=== PATIENT | male | born 1995 | race Two or more races ===

== ENCOUNTER 2024-10-18 21:21 | Emergency (ER) | payer SELFPAY ==
[2024-10-18] VITALS (16 sets, daily range): BP systolic 130–196; BP diastolic 80–106; PULSE 117–121; TEMP 37.2–39.2; O2SAT 89–99; BMI 32.1
--- NOTE | 2024-10-18 21:45 | ED_ITS ---
HPI - Fever General Chief Complaint: Fever Stated Complaint: LIGHTHEADED Time Seen by Provider: 10/18/24 21:29 Source: patient Mode of arrival: walk-in Limitations: no limitations History of Present Illness HPI Narrative: This 29-year-old male presents for evaluation of 1 day of fevers, chills, body aches with headache, nausea, 1 episode of vomiting. The symptoms started earlier today while he was driving. He has had 1 episode of vomiting but no diarrhea. He denies any chest pain or shortness of breath. He states he went to [facility] and waited for 3 hours in their lobby before coming to this emergency department. He states he feels dizzy and lightheaded like he might pass out. His girlfriend was concerned that it might be his tooth that has been bothering him causing his fever. He has a right upper posterior molar that is growing out sideways. I do not see any periapical abscess or sign of acute dental infection adjacent to this tooth. There is also no facial swelling, difficulty opening the mouth or other notable findings in the mouth. The patient states he is trying to get into [facility] to get this tooth extracted. Related Data Home Medications ?Medication ?Instructions ?Recorded ?Confirmed No Known Home Medications 10/18/24 10/18/24 Allergies Allergy/AdvReac Type Severity Reaction Status Date / Time No Known Drug Allergies Allergy Verified 10/18/24 21:33 Review of Systems ROS Status of ROS 10 or more systems reviewed and unremark able except as noted in history and below PFSH PFSH Social History Little interest or pleasure in doing things: not at all Feeling down, depressed, or hopeless: not at all Exam Narrative Exam Narrative: Vital signs and Nursing Notes reviewed: Patient is febrile, tachycardic, he has a normal blood pressure, he is not hypoxic with pulse ox of 99% on room air General: Awake, alert, oriented, nontoxic but uncomfortable appearing - [place] male, no respiratory distress, no active vomiting HEENT: Normocephalic atraumatic, mucous membranes are moist and pink, eyes are clear, normal conjunctiva, vision is grossly intact, posterior pharynx is normal in appearance. The right upper posterior molar is mildly tender to palpation percussion and is growing out of his gum sideways. I do not see any. Apical abscess, signs of necrotizing gingivitis, diffuse periodontal disease or other notable findings Neck: Supple, no meningeal signs, no anterior or posterior cervical lymphadenopathy Chest: Lungs are clear to auscultation with good air entry, there is no wheezing rhonchi or rales appreciated no accessory muscle use, patient is speaking in complete sentences-no chest wall tenderness to palpation CVS: Regular rate and rhythm S1-S2, tachycardic at 120 upon arrival, no murmurs rubs or gallops, pulses are brisk and equal bilaterally ABD: Soft, nondistended, nontender, no rebound guarding or rigidity, bowel sounds are normal, no pulsatile masses appreciated Extremities: Moving all extremities, no lower extremity tenderness or swelling noted, negative Homans' sign, pulses are brisk and equal bilaterally Skin: Normal in appearance without rash,pallor, petechiae or purpura Neuro: No focal deficits Constitutional Vital Signs, click to edit/add: Last Vital Signs Temp 102.6 F H 10/18/24 21:44 Pulse 117 H 10/18/24 22:23 Resp 18 10/18/24 22:23 BP 167/88 H 10/18/24 23:00 Pulse Ox 97 10/18/24 23:20 O2 Del Method Room Air 10/18/24 21:27 Course Vital Signs Vital signs: Vital Signs Temperature 101.2 F H 10/18/24 21:27 Pulse Rate 121 H 10/18/24 21:27 Respiratory Rate 20 10/18/24 21:27 Blood Pressure 196/106 H 10/18/24 21:27 Pulse Oximetry 99 10/18/24 21:27 Oxygen Delivery Method Room Air 10/18/24 21:27 Temperature 102.6 F H 10/18/24 21:44 Pulse Rate 117 H 10/18/24 22:23 Respiratory Rate 18 10/18/24 22:23 Blood Pressure 167/88 H 10/18/24 23:00 Pulse Oximetry 97 10/18/24 23:20 Oxygen Delivery Method Room Air 10/18/24 21:27 MDM - Fever MDM Narrative Medical decision making narrative: This 29-year-old male, non-smoker except for marijuana presents for evaluation of acute onset of fevers, chills, body aches with nausea, 1 episode of vomiting and dry cough that started abruptly earlier in the day. He states he waited for 3 hours at [facility] to get seen but after not being seen for 3 hours he came to this emergency department. The patient's girlfriend was concerned that a tooth that he has in his right upper gumline may be causing the fever and infection. He does have a posterior molar/wisdom tooth that is growing out laterally from his gumline but I do not appreciate any acute infection, periapical abscess or other signs of dental infection. He was noted to have a temperature of 102.6 upon arrival and was tachycardic. An IV was placed and he was medicated with Tylenol, Toradol, IV fluids and Zofran. He tested negative for strep, influenza and COVID-19. Routine labs are reviewed. He has a normal white count and hemoglobin. His creatinine is elevated at 1.55. The remainder of his labs were normal. 1 view chest x-ray is negative for acute findings. On reevaluation he looks to be feeling better. He states he still feels achy all over. I explained to him that he likely has an influenza-like virus that he may have not tested positive for since his symptoms started several hours prior to his arrival. He will be discharged home with a prescription for ibuprofen, Zofran and amoxicillin for his dental pain. He was encouraged to follow-up closely with a dentist for further evaluation and treatment of this dental pain that he is having. Medical Records Medical records narrative: The [address] [address] XRay Report Signed Patient: KIMO BONNER MR#: [id number] : 1995 Acct:[id number] Age/Sex: 29 / M ADM Date: 10/18/24 Loc: ER Attending Dr: Ordering Physician: Kailyn Zapata Date of Service: 10/18/24 Procedure(s): XR chest 1V Accession Number(s): [id number] cc: GREGORIA BLANCO~ The [address] [address] Patient Name: KIMO BONNER MRN: [id number] date: 1995 Sex: M Assigned Patient Location: ER Current Patient Location: ER Accession/Order Number: [id number] Exam Date: 10/18/2024 22:45 Report Date: 10/18/2024 23:19 At the request of: KAILYN ZAPATA Procedure: XR chest 1V EXAMINATION: XR chest 1V HISTORY: fever, cough COMPARISON: XR chest 06/01/2021 FINDINGS: LUNGS: No significant pulmonary parenchymal abnormalities. VASCULATURE: No increased pulmonary vasculature. PLEURA: No pneumothorax, effusion, or pleural thickening. CARDIAC: No cardiomegaly or cardiac silhouette abnormality. MEDIASTINUM: No visible mass or adenopathy. BONES: No fracture or visible bone lesion. OTHER: Negative. XR/XR chest 1V IMPRESSION: 1. No acute cardiopulmonary process. Electronically authenticated by: LIZETH BASS Date: 10/18/2024 23:19 Lab Data Labs: Lab Results 10/18/24 10/18/24 10/18/24 Range/Units 21:39 21:50 21:57 WBC 10.8 (4.0-11.0) 10^3/uL RBC 4.70 (4.70-6.10) 10^6/uL Hgb 13.9 L (14.0-18.0) g/dL Hct 41.5 L (42.0-54.0) % MCV 88.3 (80.0-94.0) fL MCH 29.6 (25.9-34.0) pg MCHC 33.5 (29.9-35.2) g/dL RDW 13.1 (11.0-15.0) % Plt Count 253 (150-450) 10^3/uL MPV 9.3 L (9.5-13.5) fL Seg Neuts % (Manual) 90.0 H (43.0-75.0) Band Neutrophils % 0.0 (0-5) % Lymphocytes % (Manual) 2.0 L (20.5-60.0) % Monocytes % (Manual) 6.0 (1.7-12.0) % Eosinophils % (Manual) 1.0 (0.9-7.0) % Basophils % (Manual) 1.0 (0.2-2.0) % Neutrophils # (Manual) 9.72 H (1.4-6.5) 10^3/uL Band Neutrophils # 0.0 (0.0-0.3) 10^3/uL Lymphocytes # (Manual) 0.21 L (1.20-3.80) 10^3/uL Monocytes # (Manual) 0.64 (0.30-0.80) 10^3/uL Eosinophils # (Manual) 0.10 (0.00-0.70) 10^3/uL Basophils # (Manual) 0.10 (0.00-0.10) 10^3/uL Toxic Vacuolation 3+ Sodium 136 (136-145) mmol/L Potassium 3.6 (3.5-5.1) mmol/L Chloride 103 (98-107) mmol/L Carbon Dioxide 23.6 (21.0-32.0) mmol/L Anion Gap 13.0 BUN 13.0 (7.0-18.0) mg/dL Creatinine 1.55 H (0.70-1.30) mg/dL Est GFR ( Amer) >60 (>=60 mL/min/1.73m^2) Est GFR (Non-Af Amer) 53 L (>=60 mL/min/1.73m^2) BUN/Creatinine Ratio 8.4 Glucose 113 H (74-106) mg/dL Calcium 9.2 (8.5-10.1) mg/dL Total Bilirubin 0.6 (0.2-1.0) mg/dL AST 14 L (15-37) U/L ALT 27 (16-63) U/L Alkaline Phosphatase 66 (46-116) U/L Total Protein 8.1 (6.4-8.2) g/dL Albumin 3.9 (3.4-5.0) g/dL Globulin 4.2 g/dL Albumin/Globulin Ratio 0.9 Influenza Type A Ag Negative Influenza Type B Ag Negative SARS-CoV-2 Ag (CV2AG) Negative (NEGATIVE) Streptococcus Screen Negative Discharge Plan Discharge Chief Complaint: Fever Clinical Impression: Viral infection, Pain, dental Patient Disposition: Home, Self-Care Time of Disposition Decision: 23:35 Condition: Good Prescriptions / Home Meds: No Action No Known Home Medications Print Language: Monegasque Instructions: Viral Syndrome (ED), Toothache (ED) Referrals: Physician,Non-Staff, [Physician] - 1 week
--- NOTE | 2024-10-18 21:48 | PC.NURSE ---
patient complains of a fever, and feels like going topass out, onset this morning. this patient was at [facility] for the past 3 hours prior to arrival here
[2024-10-18 21:57] LABS: Influenza Virus A Antigen Negative; Influenza Virus B Antigen Negative; Internal Control Within Normal Limits; SARS-CoV-2 Ag NEGATIVE (NEGATIVE)
[2024-10-18 22:08] LABS: Internal Control Within Normal Limits; Strep A Antigen Screen Negative
[2024-10-18 22:11] LABS: Hematocrit 41.5 % (42.0-54.0); Hemoglobin 13.9 g/dL (14.0-18.0); Mean Corpuscular HGB Conc 33.5 g/dL (29.9-35.2); Mean Corpuscular Hemoglobin 29.6 pg (25.9-34.0); Mean Corpuscular Volume 88.3 fL (80.0-94.0); Mean Platelet Volume 9.3 fL (9.5-13.5); Platelet Count 253 10^3/uL (150-450); Red Cell Distribution Width 13.1 % (11.0-15.0); White Blood Count 10.8 10^3/uL (4.0-11.0)
[2024-10-18] MEDS: 0.9 % SODIUM CHLORIDE 1,000 ML 1000 ML IV (22:15)
[2024-10-18] MEDS: KETOROLAC TROMETHAMINE 30 MG/ML VIAL IVP (22:16)
[2024-10-18] MEDS: ACETAMINOPHEN 325 MG TABLET 650 MG PO (22:16)
[2024-10-18] MEDS: ONDANSETRON PF 4 MG/2 ML VIAL IV (22:16)
[2024-10-18 22:29] LABS: Alanine Aminotransferase 27 U/L (16-63); Albumin Globulin Ratio 0.9; Albumin Level 3.9 g/dL (3.4-5.0); Alkaline Phosphatase 66 U/L (46-116); Aspartate Amino Transferase 14 U/L (15-37); BUN Creatinine Ratio 8.4; Bilirubin Total 0.6 mg/dL (0.2-1.0); Calcium 9.2 mg/dL (8.5-10.1); Carbon Dioxide 23.6 mmol/L (21.0-32.0); Chloride 103 mmol/L (98-107); Estimated GFR (African America >60 (>=60 mL/min/1.73m^2); Estimated GFR (Non-African Ame 53 (>=60 mL/min/1.73m^2); Globulin 4.2 g/dL; Glucose 113 mg/dL (74-106); Potassium 3.6 mmol/L (3.5-5.1); Sodium 136 mmol/L (136-145); Total Protein 8.1 g/dL (6.4-8.2)
[2024-10-18 22:33] LABS: Lymphocytes Absolute Manual 0.21 10^3/uL (1.20-3.80); Monocytes Absolute Manual 0.64 10^3/uL (0.30-0.80)
[2024-10-18 22:34] LABS: Segmented Neut Absolute Manual 9.72 10^3/uL (1.4-6.5); Toxic Vacuolation 3+
--- NOTE | 2024-10-18 22:39 | PC.NURSE ---
this patient lying supine on the bed awake and alert watching football on his cell phone, this patient voice no concerns and shows no signs of distress. this patient aware waiting on all of the test results to come back
--- NOTE | 2024-10-18 22:41 | XR_ITS ---
The [address] [address] Patient Name: KIMO BONNER MRN: [id number] date: 1995 Sex: M Assigned Patient Location: ER Current Patient Location: ER Accession/Order Number: [id number] Exam Date: 10/18/2024 22:45 Report Date: 10/18/2024 23:19 At the request of: SARAH MARKER Procedure: XR chest 1V EXAMINATION: XR chest 1V HISTORY: fever, cough COMPARISON: XR chest 06/01/2021 FINDINGS: LUNGS: No significant pulmonary parenchymal abnormalities. VASCULATURE: No increased pulmonary vasculature. PLEURA: No pneumothorax, effusion, or pleural thickening. CARDIAC: No cardiomegaly or cardiac silhouette abnormality. MEDIASTINUM: No visible mass or adenopathy. BONES: No fracture or visible bone lesion. OTHER: Negative. XR/XR chest 1V IMPRESSION: 1. No acute cardiopulmonary process. Electronically authenticated by: LIZETH BASS Date: 10/18/2024 23:19
--- NOTE | 2024-10-18 23:34 | PC.NURSE ---
this patient up and walked to the restroom at this time
--- NOTE | 2024-10-18 23:49 | PC.NURSE ---
i gave this patient verbal and paper discharge orders along with 3 Rx and 1 work note, this patient voices yes to understanding these. at time of discharge this patient voices no concerns and shows no signs of distress
[2024-10-19 09:47] LABS: BOX Test Reference Lab FIRELANDS
== END 2024-10-18 23:51 | disposition home or self-care (01) ==
PROVIDERS: Emergency Provider Emergency Medicine; PCP Internal Medicine
DX: B34.9 Viral infection, unspecified (principal); K08.89 Other specified disorders of teeth and supporting structures; R50.9 Fever, unspecified
CPT/HCPCS: 36415; 71045; 80053; 85007; 85027; 87070; 87081; 87804; 87811; 87880; 96361; 96374; 96375; 99284; J1885; J2405